=== PATIENT | female | born 1970 | race American Indian/Alaskan Native ===

== ENCOUNTER 2020-12-24 17:40 | Emergency (ER) | payer MEDICAID ==
[2020-12-24 17:54] VITALS: BP 134/89
--- NOTE | 2020-12-26 14:01 | Electrocardiograph Report ---
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
== END 2020-12-24 19:00 | disposition left against medical advice (07) ==
LOC: ED 17:40
DX: R07.89 Other chest pain (principal); Z53.21 Procedure and treatment not carried out due to patient leaving prior to being seen by health care provider
CPT/HCPCS: 93005